=== PATIENT | male | born 1955 | race Caucasian/White ===

== ENCOUNTER 2019-02-01 07:02 | Emergency (ER) | payer BC ==
[2019-02-01 07:28] VITALS: BP 146/86
--- NOTE | 2019-02-01 07:48 | UC ---
Skin Complaint HPI - HPI Summary HPI Summary: Patient presents to urgent care for evaluation of acute rash that has progressed to his chest abdomen and upper back since Friday. Patient states it is itchy at times. Patient states it's worse after showers. Patient without any facial swelling difficulty breathing shortness of breath or wheeze. Patient states he did use a new fabric softener and wonders if this is reaction. Secondly patient states he was outside doing yardwork that also may contribute to it. Patient denies any new foods other did have seafood this weekend but has not had a problem prior. Patient did not take any medications prior to arrival. Patient medications reviewed this visit. - History of Current Complaint Chief Complaint: UCSkin Time Seen by Provider: 02/01/19 07:29 Stated Complaint: SKIN COMPLAINT (ALELRGIC REACTION) Hx Obtained From: Patient Pain Intensity: 0 - Allergy/Home Medications Allergies/Adverse Reactions: Allergies Allergy/AdvReac Type Severity Reaction Status Date / Time aspirin AdvReac Hives Verified 02/01/19 07:46 PMH/Surg Hx/FS Hx/Imm Hx Previously Healthy: Yes - pt undergoing workup for soft tissue scalp mass - Surgical History Surgical History: None - Family History Known Family History: Positive: None, Non-Contributory Negative: Cardiac Disease, Hypertension, Diabetes, Respiratory Disease - Social History Occupation: Employed Full-time Lives: With Family Alcohol Use: Occasionally Alcohol Amount: weekends Substance Use Type: None Smoking Status (MU): Never Smoked Tobacco - Immunization History Most Recent Influenza Vaccination: NO Most Recent Tetanus Shot: "I think I've had it within the last two years." Review of Systems All Other Systems Reviewed And Are Negative: Yes Skin: Positive: Rash Physical Exam - Summary Physical Exam Summary: Vital Signs Reviewed: Yes A+Ox3, no distress Eyes: Conjunctiva Clear, RUFUS. EOM intact and full ENT: Hearing grossly normal TM x 2 clear, mmoist, uvula midline, no exudate, no erythema Neck: Positive: Supple Respiratory: Positive: No respiratory distress, No accessory muscle use + CTA throughout no w/r Cardiovascular: RRR nl s1, s2 no m/r CBT <2 sec abd soft + BS nt/nd no guarding, no distension Musculoskeletal Exam: HESTER x 4 without difficulty Strength Intact, ROM Intact Neurological: Positive: Alert, + sensation throughout Psychological: Positive: Normal Response To examiner Skin: Positive: pt with raised, urticaria rash involving chest, abd back mild pruritic no edema, celluitis Triage Information Reviewed: Yes Vital Signs: Initial Vital Signs Temp 98.8 F 02/01/19 07:25 Pulse 85 02/01/19 07:25 Resp 15 02/01/19 07:25 BP 146/86 02/01/19 07:25 Pulse Ox 100 02/01/19 07:25 Course/Dx - Course Course Of Treatment: Pt with raised urticarial rash x 2 days. Pt used new laundry softner, ate seafood (no h.o reaction) this weekend. No OTC meds taken. Did get slightly worse with shower. No other sx vss pt with uritciarl rash including chest, abd and back only. No intraoral edema, sob, wheeze or other coincerns suspect allergic rx rx pred, pepcid benadryl with precautions return precautions pt in agreement with plan elevated BP - recommend PCP f.u - Diagnoses Provider Diagnosis: Urticarial rash Discharge ED - Sign-Out/Discharge Documenting (check all that apply): Patient Departure All imaging exams completed and their final reports reviewed: No Studies - Discharge Plan Condition: Stable Disposition: HOME Prescriptions: Famotidine TAB* [Pepcid 20 MG TAB*] 20 mg PO DAILY #12 tab predniSONE TAB* [Deltasone 20 MG TAB*] 20 mg PO DAILY #11 tab Patient Education Materials: Urticaria (ED) Referrals: Brandan Bahena DO [Primary Care Provider] - Additional Instructions: - Take prednisone exactly as prescribed until gone - starting today - Okay to take Benadryl (1-2 tablets) every 6 hours as needed. This medication may cause drowsiness - do NOT drive, operate machinery or drink alcohol while taking Benadryl - Take pepcid as prescribed - 2 times daily for 6 days - Avoid getting over heated (hot showers, hot tubs, exercise) for at least 48 hours - Try to avoid aspirin, NSAIDs (Motrin, Aleve, Naprosyn) for 2-3 days - Okay to apply cool compresses to the area of injury - If you develop facial or mouth swelling, difficulty swallowing, shortness of breath or other concerns it is recommended you go directly to the emergency department - It is recommended you re-wash all of your clothing that was previously washed in the new laundry softner -Contact your doctor or return here with questions or concerns - Billing Disposition and Condition Condition: STABLE Disposition: Home
== END 2019-02-01 07:51 | disposition home or self-care (01) ==
LOC: UCCORT 07:02
DX: L50.9 Urticaria, unspecified (principal); Z88.8 Allergy status to other drugs, medicaments and biological substances
CPT/HCPCS: 99202; G0463

== ENCOUNTER 2022-12-13 13:18 | Inpatient (IN) ==
[2022-12-13] MEDS ORDERED: Morphine 4 MG/ML VIAL (1 ml) IV ONE (18:09)
[2022-12-13 18:46] LABS: ABS Lymphocytes 1.1 10^3/uL (1.0-4.8); ABS Monocytes 0.6 10^3/uL (0.0-1.1); ABS Neutrophils 9.1 10^3/uL (1.5-7.6); Hematocrit 29.1 % (38-53); Hemoglobin 8.7 g/dL (13.2-16.3); Lymphocyte % 9.8 %; Mean Corpuscular Hemoglobin 23.1 pg (27-33); Mean Corpuscular Volume 77.1 fL (80-97); Mean Platelet Volume 6.1 fL (7.5-11.2); Platelet Count 490 10^3/uL (150-450); Red Blood Count 3.78 10^6/uL (4.06-5.63); Red Cell Distribution Width 21.4 % (12-17); White Blood Count 10.9 10^3/uL (3.6-10.2)
[2022-12-13 18:58] LABS: Activated Partial Thrombo Time 35.7 seconds (26.0-38.0); INR 1.28 (0.83-1.13)
[2022-12-13 19:03] LABS: Albumin/Globulin Ratio 0.8 (1-3); C Reactive Protein 229.29 mg/L (<8.01); Calcium 10.1 mg/dL (8.6-10.3); Creatinine, Serum 1.02 mg/dL (0.67-1.17); Globulin 3.8 g/dL (2-4); Magnesium 2.1 mg/dL (1.9-2.7); Potassium 4.5 mmol/L (3.5-5.0); Total Bilirubin 0.4 mg/dL (0.2-1.0); Total Protein 6.8 g/dL (6.4-8.9); eGFR CKD-EPI 81.6 (>60)
[2022-12-13] MEDS ORDERED: Morphine 10 MG/ML VIAL (1 ml) IV ONE (19:55)
[2022-12-13] MEDS ORDERED: Gadoteridol (CONTRAST) 279.3 MG/ML 10 ML IV ONE (21:15)
[2022-12-14] MEDS: Morphine 4 MG/ML VIAL (1 ml) IV PRN ×6 (03:17→21:53)
[2022-12-14] MEDS: Mirabegron 25 mg ER TAB (NF) PO SCH (10:31)
[2022-12-15] MEDS ORDERED: Senna TAB 8.6 mg TAB PO PRN (00:03)
[2022-12-15] MEDS: Mirabegron 25 mg ER TAB (NF) PO SCH (11:36)
[2022-12-15] MEDS: Senna TAB 8.6 mg TAB PO ONE ×2 (13:35→14:02)
[2022-12-15] MEDS ORDERED: Ondansetron 4 mg VIAL 2 MG/ML 2 ml VIAL IV PRN (14:17)
[2022-12-15] MEDS: Enoxaparin 40 MG/0.4 ML SYR SUBCUT SCH (14:53)
[2022-12-15 15:53] LABS: ABS Lymphocytes 1.1 10^3/uL (1.0-4.8); ABS Monocytes 1.1 10^3/uL (0.0-1.1); ABS Neutrophils 7.6 10^3/uL (1.5-7.6); Eosinophil % 0.1 %; Hematocrit 29.8 % (38-53); Hemoglobin 9.2 g/dL (13.2-16.3); Lymphocyte % 11.1 %; Mean Corpuscular Hemoglobin 23.4 pg (27-33); Mean Corpuscular Hgb Conc 30.7 g/dL (31-36); Mean Corpuscular Volume 76.2 fL (80-97); Mean Platelet Volume 6.1 fL (7.5-11.2); Platelet Count 395 10^3/uL (150-450); Red Blood Count 3.91 10^6/uL (4.06-5.63); Red Cell Distribution Width 20.7 % (12-17); White Blood Count 9.9 10^3/uL (3.6-10.2)
[2022-12-15 16:09] LABS: C Reactive Protein 302.79 mg/L (<8.01); Calcium 10.7 mg/dL (8.6-10.3); Creatinine, Serum 0.98 mg/dL (0.67-1.17); Magnesium 2.1 mg/dL (1.9-2.7); Potassium 4.1 mmol/L (3.5-5.0); eGFR CKD-EPI 85.6 (>60)
[2022-12-15] MEDS: Senna TAB 8.6 mg TAB PO SCH (20:34)
[2022-12-16 05:58] LABS: ABS Lymphocytes 1.6 10^3/uL (1.0-4.8); ABS Monocytes 1.4 10^3/uL (0.0-1.1); ABS Neutrophils 7.3 10^3/uL (1.5-7.6); ABS Nucleated RBC 0.01 10^3/ul; Eosinophil % 0.1 %; Hematocrit 25.8 % (38-53); Hemoglobin 8.1 g/dL (13.2-16.3); Lymphocyte % 15.4 %; Mean Corpuscular Hemoglobin 23.7 pg (27-33); Mean Corpuscular Hgb Conc 31.4 g/dL (31-36); Mean Corpuscular Volume 75.5 fL (80-97); Platelet Count 358 10^3/uL (150-450); Red Blood Count 3.41 10^6/uL (4.06-5.63); Red Cell Distribution Width 20.9 % (12-17); White Blood Count 10.2 10^3/uL (3.6-10.2)
[2022-12-16 06:16] LABS: Calcium 10.3 mg/dL (8.6-10.3); Creatinine, Serum 0.96 mg/dL (0.67-1.17); Potassium 4.3 mmol/L (3.5-5.0); eGFR CKD-EPI 87.7 (>60)
[2022-12-16] MEDS: Senna TAB 8.6 mg TAB PO SCH ×2 (08:10→21:02)
[2022-12-16] MEDS: Mirabegron 25 mg ER TAB (NF) PO SCH (08:14)
[2022-12-16] MEDS: Enoxaparin 40 MG/0.4 ML SYR SUBCUT SCH (15:55)
[2022-12-16 17:49] VITALS: BP 100/63
== END 2022-12-16 22:30 | disposition short-term general hospital (02) | DRG 542 ==
LOC: ED 13:18 → EDHOLD 12-15 14:17 → MED 12-15 16:13
PROVIDERS: ADMIT Internal Medicine; ATTEND Internal Medicine